=== PATIENT | male | born 1990 | race Caucasian/White ===

== ENCOUNTER 2020-04-11 19:31 | Emergency (ER) | payer BC, SELFPAY ==
[~2020-04-11] VITALS: Ht 182.9 cm; Wt 65.8 kg
[2020-04-11 19:34] VITALS: Ht 182.9 cm; Wt 65.8 kg
[2020-04-11 20:47] LABS: BASOPHIL % 0.6 % (0-2); PLATELET COUNT 215 x10^3mcL (130-400); RED CELL DISTRIBUTION WIDTH 12.7 % (11.5-14.5)
[2020-04-11 20:57] LABS: UA SPECIFIC GRAVITY 1.015 (1.005-1.035); microscopic required? YES; urine erythrocyte TRACE (NEGATIVE)
[2020-04-11 20:59] LABS: CALCIUM 9.1 mg/dL (8.5-10.1); CARBON DIOXIDE 26.8 mmol/L (21-32); CHLORIDE SERUM 98 mmol/L (98-107); CREATININE SERUM 0.9 mg/dL (0.7-1.3); GFR1 > 60 mL/min; GLUCOSE SERUM 135 mg/dL (74-106); POTASSIUM SERUM 3.5 mmol/L (3.5-5.1); SODIUM SERUM 134 mmol/L (136-145)
[2020-04-11 21:04] LABS: ALBUMIN 4.4 g/dL (3.4-5.0); ALKALINE PHOSPHATASE 64 U/L (46-116); ALT/SGPT 331 U/L (16-63); AST/SGOT 276 U/L (15-37); BILIRUBIN TOTAL 1.2 mg/dL (0.20-1.00); LACTIC DEHYDROGENASE (LDH) 211 U/L (100-190); TOTAL PROTEIN, SERUM 7.7 g/dL (6.4-8.2)
[2020-04-11 21:15] LABS: C REACTIVE PROTEIN < 0.2 mg/dL (<=0.9)
[2020-04-11 23:07] VITALS: BP 115/81
== END 2020-04-11 23:07 ==
LOC: ED 19:31
PROVIDERS: Emergency Medicine
DX: G40.409 Other generalized epilepsy and epileptic syndromes, not intractable, without status epilepticus (principal); R50.9 Fever, unspecified; Z20.828 Contact with and (suspected) exposure to other viral communicable diseases; Z91.018 Allergy to other foods
CPT/HCPCS: 83880; 85378; 87804; J7030; Q0092; U0003-CS